=== PATIENT | male | born 1995 | race Caucasian/White ===

== ENCOUNTER 2020-12-08 12:34 | Emergency (ER) | payer OTHER, SELFPAY ==
[2020-12-08 12:52] VITALS: BP 128/86; PULSE 96; RESP 20; TEMP 36.6; O2SAT 96
--- NOTE | 2020-12-08 12:52 | ED.SKABFB ---
HPI - Skin/Abscess/Foreign Bdy General Chief complaint: Skin/Abscess/Foreign Body Stated complaint: bite on left arm Time Seen by Provider: 12/08/20 12:38 Source: patient and RN notes reviewed Mode of arrival: ambulatory Limitations: no limitations History of Present Illness complaint: abscess/boil Related Data Home Medications Medication Instructions Recorded Confirmed No Home Medications 12/08/20 12/08/20 Allergies Allergy/AdvReac Type Severity Reaction Status Date / Time No Known Allergies Allergy Verified 12/08/20 12:57 Review of Systems Review of Systems: Narrative: Patient has been exposed to chlamydia All systems reviewed & are unremarkable except as noted in HPI and below Constitutional: Constitutional: Denies chills and Denies fever(s) PMFSH Past Medical History Medical History Cardiomyopathy Hypertrophy of tonsils Surgical History Surgical History History of adenoidectomy History of appendectomy History of tonsillectomy Family History Family History Mother Breast cancer Social History Social History Smoking status: Former smoker Alcohol intake: current Alcohol use details: social Substance use: former Substance use type: other Other substance usage details: Abused Fentanyl Gender identity (if verbalized by the patient): Male Exam Const: General: healthy appearing, no acute distress and alert Nutritional Appearance: well nourished and thin Orientation/consciousness: patient oriented x3 HENMT: Head: normal to inspection Ears: external ears normal Face and sinus: normal facial exam Mouth: Yes moist mucous membranes Eyes: Conjunctivae: conjunctivae normal Pupils: Equal, round and reactive pupils present EOM: EOMs intact bilaterally Neck: Neck: normal visual inspection Resp: Effort & Inspection: normal respiratory effort Auscultation: clear to auscultation bilaterally Cardio: Rate: regular rate Rhythm: regular rhythm GI: Auscultation: normal bowel sounds Back/Spine/Pelvis: Cervical Spine: cervical ROM normal Thoracic/Lumbar Spine: thoraco-lumbar ROM normal Skin: General skin exam: normal color Lesions: lesion noted pustule left forearm size (2 cm), color with an erythematous base, consistency firm, fluctuant and mobile and tender Neuro: General: patient oriented x3, moves all extremities, no meningeal signs and no focal motor deficits Speech: normal speech Gait exam (Neuro): Normal gait present Extrem: General: normal to inspection and no clubbing, cyanosis or edema Psych: Appearance: grossly normal and well kempt Mental Status: mental status grossly normal Affect: normal affect Attitude: cooperative Thought content: Yes Normal thought content present Procedures Abscess I/D upper extremity: Date of Incision: 12/08/20 Time of Incision: 13:01 Side (if applicable): left Sedation/analgesia: none Local Anesthetic: lidocaine 1% Amount of anesthesia used (mL): 8 Technique: incised with #11 blade Irrigation: No Packing used?: none I&D Results: Blood Discharge Plan Discharge Clinical Impression: Chlamydia contact Abscess of skin or subcutaneous tissue Qualifiers: Site of cutaneous abscess: extremity Site of cutaneous abscess of extremity: upper extremity Laterality: left Qualified Code(s): L02.414 - Cutaneous abscess of left upper limb Patient Disposition: Home, Self-Care Condition: Stable Instructions: Antibiotic Form, Chlamydia (ED), Abscess (ED) Prescriptions: No Action No Home Medications RF: 0 Follow-up/Referrals: Ramila Lerma NP [Primary Care Provider] - Time of Disposition: 13:14
[2020-12-08] MEDS: cefTRIAXone 250 MG VIAL IM (13:14)
[2020-12-08] MEDS: AZITHROMYCIN 250 MG TABLET 1000 MG PO (13:14)
[2020-12-08] MEDS: LIDOCAINE HCL 1% LOCAL INJ 20 ML VIAL INFILTRATE (13:15)
[2020-12-08 13:30] VITALS: BP 121/83; PULSE 83; RESP 20; TEMP 36.7; O2SAT 96
== END 2020-12-08 13:31 | disposition home or self-care (01) ==
PROVIDERS: Emergency Provider Emergency Medicine; PCP Nurse Practitioner Family
DX: L02.414 Cutaneous abscess of left upper limb (principal)
CPT/HCPCS: 10060; 96372; 99282; 99283; A9270; J0696

== ENCOUNTER 2024-04-13 18:54 | Emergency (ER) | payer OTHER, SELFPAY ==
--- NOTE | ~2024-04-13 | XR_ITS ---
XR hand RT min 3V Ordering provider: Montana Malik MD History: . pain . Comparison: None. FINDINGS: BONES: No acute fracture or dislocation. JOINT SPACES: Normal. SOFT TISSUES: Normal. IMPRESSION: No acute osseous abnormality right hand. Reviewed, dictated and finalized at location A. [facility]
--- NOTE | ~2024-04-13 | XR_ITS ---
XR hand LT min 3V Ordering provider: Montana Malik MD History: . pain . Comparison: The FINDINGS: BONES: No acute fracture or dislocation. Overlap of the bases of the fourth and fifth metacarpal bone is noted which may be positional. Evaluation for tenderness in the area is advised to exclude minima l subluxation. JOINT SPACES: Well maintained. SOFT TISSUES: Unremarkable. IMPRESSION: No acute osseous abnormality left hand. Clinical evaluation of the area of the base of the fourth and fifth metacarpal bone is advised. Reviewed, dictated and finalized at location A. [facility] RECOR[employer] CLERK
[2024-04-13 18:58] VITALS: BP 119/70; PULSE 56; RESP 16; TEMP 36.6; O2SAT 100
--- NOTE | 2024-04-13 19:32 | ED.UPPEXIN ---
HPI - Extremity Injury (Upper) General Chief Complaint: Extremity Injury, Upper Stated Complaint: REQUESTING HAND XRAYS Time Seen by Provider: 04/13/24 19:32 Source: patient Mode of arrival: ambulatory Limitations: no limitations History of Present Illness HPI narrative: This is a 28-year-old male who presents to the ED for chief complaint of right hand and left hand injuries occurring over the past couple of days. Reports right finger injured a few days ago and left thumb today. 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 Reports today he was helping his friend put some metal in a dumpster and felt something pop in the left thumb. He is requesting hand x-rays for the above injuries. Denies any further sites of pain or injury. Related Data Home Medications Medication Instructions Recorded Confirmed No Home Medications 12/08/20 12/08/20 Allergies Allergy/AdvReac Type Severity Reaction Status Date / Time No Known Allergies Allergy Verified 04/13/24 18:55 Review of Systems Review of Systems: All systems as dictated in HPI [facility] Past Medical History Medical History Cardiomyopathy Hypertrophy of tonsils Surgical History Surgical History History of adenoidectomy History of appendectomy History of tonsillectomy Family History Family History Mother Breast cancer Social History Social History Smoking status: Former smoker Alcohol intake: current Alcohol use details: social Substance use: former Substance use type: other Other substance usage details: Abused Fentanyl Living arrangements: alone Occupation/Education: unemployed Gender identity (if verbalized by the patient): Male Exam Narrative: GENERAL: Well-appearing, well-nourished, and in no acute distress. MSK: LUE: Mild tenderness to the base of the left thumb. No deformity. RUE: Mild tenderness to the distal right 4th finger. 2 mm of subungual hematoma noted. Full range of motion. SKIN: Warm, dry, no rash. NEURO: Alert and oriented x4. No focal deficits. PSYCH: Normal mood and affect. Course Vital Signs Vital signs: Vital Signs Temperature 97.9 F 04/13/24 18:58 Pulse Rate 56 L 04/13/24 18:58 Respiratory Rate 16 04/13/24 18:58 Blood Pressure 119/70 04/13/24 18:58 Pulse Oximetry 100 04/13/24 18:58 Temperature 97.9 F 04/13/24 18:58 Pulse Rate 56 L 04/13/24 18:58 Respiratory Rate 16 04/13/24 18:58 Blood Pressure 119/70 04/13/24 18:58 Pulse Oximetry 100 04/13/24 18:58 MDM - Extremity Injury (Upper) MDM Narrative Medical decision making narrative: This is a 28-year-old male who presents to the ED for left hand and right hand injuries over the past couple of days. Vitals are normal. Exam is remarkable for the above. No outward signs of trauma. Range of motion is intact. Left hand x-rays: IMPRESSION: No acute osseous abnormality left hand. Clinical evaluation of the area of the base of the fourth and fifth metacarpal bone is advised. Right hand x-rays: IMPRESSION: No acute osseous abnormality right hand. Presentation consistent with musculoskeletal strains. Patient will be discharged in stable condition. Supportive measures discussed and return precautions given. Patient is understanding and agreeable with plan for discharge with PCP follow-up. Discharge Plan Discharge Clinical Impression: Hand injuries Patient Disposition: Home, Self-Care Condition: Stable Instructions: Antibiotic Form Additional Instructions: Your exam and imaging today are reassuring. No fractures detected. Please use Adalberto wrap were [id number] wrist brace for the hand and thumb. Take Tylenol and ibuprofen regularly for pain control. Prescriptions: No Action No Home Medications Follow-up/Referrals: PHYSICIAN,PRINT BUYER [Primary Care Provider] - Time of Disposition: 19:54
== END 2024-04-13 20:15 | disposition home or self-care (01) ==
LOC: ANHED 19:56
PROVIDERS: Emergency Provider Physician Assistant
DX: S60.141A Contusion of right ring finger with damage to nail, initial encounter (principal); S69.92XA Unspecified injury of left wrist, hand and finger(s), initial encounter; I42.9 Cardiomyopathy, unspecified; Z87.891 Personal history of nicotine dependence; W23.0XXA Caught, crushed, jammed, or pinched between moving objects, initial encounter; X58.XXXA Exposure to other specified factors, initial encounter
CPT/HCPCS: 73130; 99284

== ENCOUNTER 2024-05-17 16:07 | Emergency (ER) | payer BC, OTHER, SELFPAY ==
[2024-05-17 16:16] VITALS: BP 107/67; PULSE 66; RESP 18; TEMP 36.7; O2SAT 99
[2024-05-17 16:59] LABS: EDCOVIDSCREEN Negative (Negative); EDINFLUASCREEN Negative (Negative); EDINFLUBSCREEN Negative (Negative)
--- NOTE | 2024-05-17 16:59 | ED_ITS ---
HPI - General Adult General Chief complaint: Upper Respiratory Infection Stated complaint: Sore Throat Source: patient Mode of arrival: ambulatory Limitations: no limitations History of Present Illness HPI narrative: Patient presents for evaluation of sick symptoms. He is currently on amoxicillin for a dental extraction. He has noted a sore throat for about 10 days. He also has a cough, sinus congestion, a popping sensation in his ears. He had some nausea earlier which has since resolved. Denies any vomiting, diarrhea, fever, chills. No recent sick contacts to his knowledge. He has been taking Sudafed for symptoms he does vape. Related Data Allergies Allergy/AdvReac Type Severity Reaction Status Date / Time No Known Allergies Allergy Verified 05/17/24 16:57 Review of Systems Review of Systems: CONSTITUTIONAL: Denies fever, chills, or sweats. EYES: Denies visual changes, redness, or discharge. ENT: Reports sore throat, sinus congestion and a popping sensation in the ears CARDIOVASCULAR: Denies chest pain, palpitations, or edema. RESPIRATORY: Reports cough. Denies shortness of breath. GASTROINTESTINAL: Reports nausea. Denies abdominal pain, vomiting, or diarrhea. GENITOURINARY: Denies dysuria or hematuria. SKIN: Denies rash or itching. MUSCULOSKELETAL: Denies back pain, joint pain, or myalgia. NEUROLOGIC: Denies headache, numbness, dizziness, or weakness. PSYCHIATRIC: Denies anxiety or depression. [facility] Past Medical History Medical History Cardiomyopathy Hypertrophy of tonsils Surgical History Surgical History History of tonsillectomy History of adenoidectomy History of appendectomy Family History Family History Mother Breast cancer Social History Social History Smoking status: Former smoker Alcohol intake: current Alcohol use details: social Substance use: former Substance use type: other Other substance usage details: Abused Fentanyl Living arrangements: alone Occupation/Education: unemployed Gender identity (if verbalized by the patient): Male Exam Narrative: GENERAL: Well-appearing, well-nourished, and in no acute distress. HEAD: Normocephalic, atraumatic. EYES: PERRLA and EOMI. ENT: Nares clear, no rhinorrhea or epistaxis. Mucous membranes moist. Oropharynx without tonsillar hypertrophy exudate or other lesions. There is posterior pharyngeal erythema. Bilateral TMs pearly stuart nonbulging NECK: Supple. No adenopathy or masses. No carotid bruits or JVD CHEST: Clear to auscultation. No respiratory distress. No wheezes rales or rhonchi HEART: Regular rate and rhythm. No murmur heard. Normal peripheral pulses. ABDOMEN: Soft, nontender, nondistended, normal active bowel sounds. EXTREMITIES: Normal range of motion. No edema. SKIN: Warm, dry, no rash. NEURO: No focal deficits. Alert and oriented x3. PSYCH: Normal mood and affect. Course Course Emergency Course: This is a 28-year-old male who presented for evaluation of sick symptoms. He is already on amoxicillin so strep was not ordered. COVID and influenza were negative. We discussed possibility of pneumonia. He would like to be empirically treated for it. Will add on azithromycin. Saturations are normal. Advised smoking cessation. Follow up with primary provider. Go to the ER for worsening symptoms. Patient in agreement with plan of care. Level of Care: Express Care Visit Vital Signs Vital signs: Vital Signs Temperature 36.7 C 05/17/24 16:16 Pulse Rate 66 05/17/24 16:16 Respiratory Rate 18 05/17/24 16:16 Blood Pressure 107/67 05/17/24 16:16 Pulse Oximetry 99 05/17/24 16:16 Oxygen Delivery Room Air 05/17/24 16:16 Temperature 36.7 C 05/17/24 16:16 Pulse Rate 66 05/17/24 16:16 Respiratory Rate 18 05/17/24 16:16 Blood Pressure 107/67 05/17/24 16:16 Pulse Oximetry 99 05/17/24 16:16 Oxygen Delivery Room Air 05/17/24 16:16 Medical Decision Making Vital Signs Vital Signs: Vital Signs Temperature 36.7 C 05/17/24 16:16 Pulse Rate 66 05/17/24 16:16 Respiratory Rate 18 05/17/24 16:16 Blood Pressure 107/67 05/17/24 16:16 Pulse Oximetry 99 05/17/24 16:16 Oxygen Delivery Room Air 05/17/24 16:16 Temperature 36.7 C 05/17/24 16:16 Pulse Rate 66 05/17/24 16:16 Respiratory Rate 18 05/17/24 16:16 Blood Pressure 107/67 05/17/24 16:16 Pulse Oximetry 99 05/17/24 16:16 Oxygen Delivery Room Air 05/17/24 16:16 Lab Data Labs: Lab Results 05/17/24 Range/Units 16:57 POC Influenza A Ag Negative (Negative) POC Influenza B Ag Negative (Negative) POC SARS CoV-2 Ag Negative (Negative) Discharge Plan Discharge Clinical Impression: Acute sore throat, At high risk for pneumonia Patient Disposition: Home, Self-Care Condition: Stable Instructions: Antibiotic Form, Pharyngitis (ED), Pneumonia (ED) Patient Language: Egyptian Prescriptions: New azithromycin 250 mg tablet See Rx Instructions .ROUTE .COMPLEX Qty: 6 0RF Rx Instructions: For 250 mg dose pack: take 500 mg today (day 1), then 250 mg for 4 days (days 2-5) Follow-up/Referrals: Mariluz Ricardo DO [Physician] - Time of Disposition: 16:58
== END 2024-05-17 17:04 | disposition home or self-care (01) ==
PROVIDERS: Emergency Provider Nurse Practitioner
DX: J02.9 Acute pharyngitis, unspecified (principal); R05.9 Cough, unspecified; Z20.822 Contact with and (suspected) exposure to COVID-19; Z87.891 Personal history of nicotine dependence
CPT/HCPCS: 87426; 87804; 99213; G0463

== ENCOUNTER 2025-03-14 14:02 | Emergency (ER) | payer BC, SELFPAY ==
--- OUTSIDE RECORDS SUMMARY | 2023-12-08 10:40 | XMS_ITS ---
Author Organization [facility] Address [address] [place] [address] Care Team Providers Care Internal Controls Specialist Name Role Phone Jemima Hill Primary Care Provider [phone] Griselda Peck Unavailable [phone] REASON FOR VISIT 1 Month Psych F/U & Med Refill Social History Sex Assigned At : Social History Observation Description Sex Assigned At Male Encounters Encounter Location Date Provider Diagnosis [address] [place] [address] 12/08/2023 Griselda Peck Plan Of Treatment No Information Progress Notes * Hola MIGUEL NamitaDOB:1995 (29 yo M)Acc No.[id number]:12/08/2023 UNLOCKED PROGRESS NOTE Patient: Hola ELIZABETH Provider: Kina Peck, MSN, SUPERVISOR YARD-BC, PMHNP-BC :1995 A ge:28 Y S ex:Male Date:12/08/2023 Address:[address], [facility] Pcp:Jemima Hill Subjective: * Chief Complaints: * 1 . 1 Month Psych F/U & Med Refill. * Medical History: Objective: * Vitals: Assessment: Plan: * Treatment: * Recommended Wellness and Pre vention Guidelines: * S tatus A lert L ast Done N ext Due A ction Taken N ONCOMPLIANT D epression followup 0 11/03/2023 0 12/08/2023 - - N ONCOMPLIANT H IV screening - 0 12/08/2023 - - * * Electronic signature of Griselda Peck , [id number] on 03/14/2025 at 03:47 PM CDT Sign off status: Pending * Provider: Kina Peck, MSN, SUPERVISOR YARD-BC, PMHNP-BC Date: 0 12/08/2023 Generated for Jonnathan goins/Marilyn/Suzie on: 1 03:47 PM CDT
[2025-03-14 14:26] VITALS: BP 129/73; PULSE 98; RESP 16; TEMP 36.4; O2SAT 99
--- OUTSIDE RECORDS SUMMARY | 2025-03-14 15:47 | XMS_ITS | Clinical Summary ---
Author Organization [facility] Address [address] [place] [address] Care Team Providers Care Engineering Illustrator Name Role Phone Unavailable Primary Care Provider Unavailabl e Source Comments [facility],non-owned Affiliates and Associated Physician Practices is amultiple site organization consisting of ambulatory clinics and hospital sitesin [place], [place], [place] and [place]. This disclosure is being madepursuant to the Care Everywhere program and may not contain all information available regarding this patient. 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 Gender Identity Not on file Sexual Orientation Not on file Plan of Treatment Health Maintenance Due Date Last Done Comments HIV SCREENING 2009 HEPATITIS C SCREENING 10/04/2012 DTAP/TDAP/TD VACCINES (1 - Tdap) 2013 HEPATITIS B VACCINE (1 of 3 - 19+ 3-dose series) 2013 HPV VACCINE (1 - 3-dose SCDM series) 2021 DEPRESSION SCREENING 05/17/2024 COVID-19 VACCINE ( - 2023-2 5 season) 2025 INFLUENZA VACCINE (#1) 2025 ZOSTER VACCINE (1 of 2) 2044 HIB VACCINE Aged Out No longer eligi ble based on patient's age to complete this topic MENINGOCOCCAL (Group B) VACC INE SHARED DECISION-MAKING Aged Out No longer eligibl e based on patient's age to complete this topic MENINGOCOCCAL GROUPS A/C/Y/W VACCINE Aged Out No longer eligible b ased on patient's age to complete this topic PNEUMOCOCCAL VACCINE Aged Out No long er eligible based on patient's age to complete this topic Insurance [facility]
--- OUTSIDE RECORDS SUMMARY | 2025-03-14 15:47 | XMS_ITS | Clinical Summary ---
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 (chemiluminescent immunoassay) technology. NONREACTIVE: Antibodies to Hepatitis C not detected. This does not exclude early acute Hepatitis C infection, possibility of exposure to Hepatitis C, antibodies below detection limit, or to lack of antibody reactivity to the antigen used in this assay. EQUIVOCAL: Antibodies to Hepatitis C may or may not be present. Sample to be confirmed by real-time PCR method. REACTIVE: Antibodies to Hepatitis C detected.Sample to be confirmed by real-time PCR method. 12/07/2018 8:05 AM CDT 12/07/2018 8:12 AM CDT Narrative [facility] - 12/07/2018 9:57 AM CDT BC Peripheral Draw Resulting Agency Comment IN Nadine Bauer DO LAB MICROBIOLOGY - G ENERAL ORDERABLES Final Result [facility] [address] [place], [place] [address] [phone] from Last 3 Months or Most Recently Relevant to Health Maintenance Insurance [facility] Advance Directives For more information, please contact: [phone] * Full Code (Latest Code Status on File) Date Activated Date Inactivated Comments 04/14/2023 1:57 PM 04/16/2023 5:24 PM * Full Code Date Activated Date Inactivated Comments 07/22/2022 2:07 PM 07/28/2022 1:14 AM * Full Code Date Activated Date Inactivated Comments 07/31/2021 4:51 PM 08/03/2021 6:08 PM Care Teams Movie Projectionist Relationship Specialty Start Date End Date Martin Mathew MD [address] [facility] [address]ANG [address] [place] [id number] PCP - General Family Medicine 09/01/23 Austen Maurer MD [address] [facility] [address] HU[address] [address] Avionics Systems Repairer Cardiology 12/20/18
--- OUTSIDE RECORDS SUMMARY | 2025-03-14 15:47 | XMS_ITS | Encounter Summary ---
Author Organization [facility] Address [facility] [place] [address] Care Team Providers Care Grant Specialist Name Role Phone None, Provider Primary Care Provider Carrie lloyd Encounter Details Date Type Department Care Team (Late st Contact Info) Description 10/22/2018 Abstract [facility] CONVERSION [address] [place] [address] , Generic Conversion, Social History Tobacco Use Types Packs/Day Years Used Date Smoking Tobacco: Never Assessed Sex and Gender Information Value Date Recorded Sex Assigned at Not on file Legal Sex Male 1:48 PM CDT Gender Identity Not on file Sexual Orientation Not on file documented as of this encounter Plan of Treatment Not on file documented as of this encounter Visit Diagnoses Not on filedocumented in this encounter Care Teams Grant Specialist Relationship Specialty Start Date End Date None, ProviderMD PCP - General 06/07/20 documented as of this encounter
--- OUTSIDE RECORDS SUMMARY | 2025-03-14 15:47 | XMS_ITS | Patient Health Record ---
Author Organization [facility] Address [address] [place] [address] Care Team Providers Care Dry Cleaning Teacher Name Role Phone Jemima Hill Primary Care Provider Allergies No Known Allergies Reason For Referral No Information Medications Medication SIG (Take, Route, Frequency, Duration) Notes Start Date End Date Status Spironolactone 25 MG 1 tablet Orally Active Lyrica 50 MG 1 capsule Orally twi ce a day; Duration: 30 days 11/03/2023 Active Mirtazapine 7.5 MG 1 tablet at bedtime Orally Once a day; Duration: 30 days 11/03/2023 Active Vraylar 4.5 MG 1 capsule Orally Onc e a day; Duration: 30 days Active Carvedilol 3.125 MG 1 tablet with food Orally Twice a day Active Sacubitril-Valsartan 24-26 MG 1 tablet Orally Twice a day Active hydrOXYzine Pamoate 50 MG 1 capsule three times a day Orally; Duration: 30 days As needed 11/03/2023 Active Social History Tobacco Use: Social History Observation Description Date Details (start date - stop date) Unknown Sex Assigned At : Social History Observation Description Sex Assigned At Male Dont use, Tobacco Use/Smoking Question Answer Notes Are you a Uses tobacco in other forms Additional Findings: Tobacco User e-Cigarette PRAPARE Question Answer Notes Date Completed/Updated: 04/26/2023 What is your current housing situation? I have h ousing Are you worried about losing your housing? No What is the highest level of school that you have finished? Less than a high school degree What is your current work situation? Oth erwise unemployed but not seeking work (ex. student, retired, disabled, unpaid primary adult care provider) In the past year, have you o r any family members you live with been unable to get any of the following when it was really needed? Check all that apply I do not have problems meeting my needs Has lack of transportation k ept you from medical appointments, meetings, work or from getting things needed for daily living? No How often do you see or talk to people that you care about and feel close to? (For example: talking to friends on the phone, visiting friends or family, going to religion or club meetings) 3 to 5 times a week How stressed are you? Stress is when someone feels tense, nervous, anxious, or can\t sleep at night because their mind is troubled Quite a bit In the past year have you sp ent more than 2 nights in a row in a senior living, intermediate, halfway center, or juvenile correctional facility? No Are you a refugee? No What country are you from? [place] Do you feel physically and e motionally safe where you currently live? Yes In the past year, have you b een afraid of your partner or ex-partner? No PRAPARE Score: 6 Section Notes: PRESCRIPTION # FILLED WRITTEN DRUG LABEL QTY DAYS STRENGTH MME PRESCRIBER PHARMACY REFILL NO. REFILLS STATE 09/01/2023 09/01/2023 Gabapentin 270.0 90 300 MG NA Martin Mathew J, Md - [id number] [place], [place] NA 3 [place] 1 [id number] 04/26/2023 04/26/2023 Buprenorphine-naloxone 14.0 7 8 MG / 2 MG NA Tanwangco Ronna - [id number] [place], [place] NA 0 [place] 1 [id number] 04/19/2023 04/19/2023 Buprenorphine-naloxone 14.0 7 8 MG / 2 MG NA Tanwangco Ronna - [id number] [place] 1 [id number] 04/19/2023 04/19/2023 Naloxone Hcl 2.0 2 40 MG/ML NA Tanwangco Ronna - [id number] PRESCRIPTION # FILLED WRITTEN DRUG LABEL QTY DAYS STRENGTH MME PRESCRIBER PHARMACY REFILL NO. REFILLS STATE 09/01/2023 09/01/2023 Gabapentin 270.0 90 300 MG NA Martin Mathew J, Md - [id number] [place], [place] NA 3 [place] 1 [id number] 04/26/2023 04/26/2023 Buprenorphine-naloxone 14.0 7 8 MG / 2 MG NA Tanwangco Ronna - [id number] [place], [place] NA 0 [place] 1 [id number] 04/19/2023 04/19/2023 Buprenorphine-naloxone 14.0 7 8 MG / 2 MG NA Tanwangco Ronna - [id number] [place] 1 [id number] 04/19/2023 04/19/2023 Naloxone Hcl 2.0 2 40 MG/ML NA Tanwangco Ronna - MT77 Problems Problem Type SNOMED Code ICD Code Onset Dates Problem Status W/U Status Risk Notes Problem Generalized anxiety disorder (77026600) Generalized anxiety disorder (F41.1) 4 Active confirmed Problem Moderate recurrent major depression (96646186) Major depressive disorder, recurrent episode, moderate (F33.1) Active confirmed Problem Opioid use disorder (2561583285) Opioid use disorder (F11.99) Active confirmed Plan Of Treatment No Information Insurance Providers Payer Name Payer Address Payer Phone Subscriber Number Group Number Insured Name Patient Relationship to Insured Coverage Start Date Coverage End Date [facility] Att Claims Department [address] [address] [phone] [id number] Hola Miguel Self - patient is the insured 3 [facility] Claims Department [address] [address] [phone] [id number] Hola Miguel Self - patient is the insured 3 Medical (General) History Medical History History ICD Code Cardiomyopathy Migraines [place] x2 Ejection Fraction is 15% Surgical History Surgery Date(Month/Year) tonsils and adenoids removal appendectomy Hospitalization History Reason Date(Month/Year) Unintentional OD at [place] 07/2023 [facility] for SI age 17 [facility] ot feeling good and passed out kept over night 2015
--- OUTSIDE RECORDS SUMMARY | 2025-03-14 15:47 | XMS_ITS | Clinical Summary ---
Author Organization [facility] Address [address] [place] [address] Care Team Providers Care Insurance Coder Name Role Phone None, Provider MD Primary Care Provider Unavaila ble Allergies No known active allergies Social History Tobacco Use Types Packs/Day Years Used Date Smoking Tobacco: Never Smokeless Tobacco: Never Tobacco Cessation:Counseling Given: Not Answered Alcohol Use Standard Drinks/Week Comments Yes 0 (1 standard drink = 0.6 oz pur e alcohol) Sex and Gender Information Value Date Recorded Sex Assigned at Not on file Legal Sex Male 1:48 PM CDT Gender Identity Not on file Sexual Orientation Not on file Last Filed Vital Signs Vital Sign Reading Time Taken Comments Blood Pressure 115/84 05/23/2022 11:25 AM TRANSFER TABLE OPERATOR HELPER Pulse 65 05/23/2022 11:25 AM TRANSFER TABLE OPERATOR HELPER Temperature 36.4 C (97.5 F) 05/23/2022 11:25 AM TRANSFER TABLE OPERATOR HELPER Respiratory Rate 18 05/23/2022 11:25 AM TRANSFER TABLE OPERATOR HELPER Oxygen Saturation 97% 05/23/2022 11:25 AM TRANSFER TABLE OPERATOR HELPER Inhaled Oxygen Concentration - - Weight 74.8 kg (165 lb) 05/23/2022 11:25 AM TRANSFER TABLE OPERATOR HELPER Height 167.6 cm (5' 6) 05/23/2022 11:25 AM TRANSFER TABLE OPERATOR HELPER Body Mass Index 26.63 05/23/2022 11:25 AM TRANSFER TABLE OPERATOR HELPER Plan of Treatment Health Maintenance Due Date Last Done Comments Annual Physical 1997 Hepatitis C 2012 DTaP, Tdap and Td Vaccines ( 1 - Tdap) 2013 Hepatitis B Vaccines (1 of 3 - 19+ 3-dose series) 2013 HPV Vaccines (1 - 3-dose SCD M series) 2021 COVID-19 Vaccine (2024-2 6 season) 2025 Influenza Adult (#1) 2025 Hepatitis A Vaccines Aged Out No long er eligible based on patient's age to complete this topic Meningococcal B Vaccine Aged Out No l onger eligible based on patient's age to complete this topic Meningococcal Vaccine Aged Out No latasha tay eligible based on patient's age to complete this topic Pneumococcal Vaccine: Pediat rics (0 to 5 Years) and At-Risk Patients (6 to 49 Years) Aged Out No longer eligible b ased on patient's age to complete this topic RSV Immunizations Under 20 Months Aged Out No longer eligible based on patient's age to complete this topic Insurance Advance Directives Documents on File Type Date Recorded Patient Correction Officer Penitentiary Expl anation Advance Directives and Living Will 06/13/2018 12:00 AM ADVANCED DIRECTIVES Advance Directives and Living Will 04/11/2018 12:00 AM ADVANCED DIRECTIVES Care Teams Insurance Coder Relationship Specialty Start Date End Date None, Provider, PCP - General 06/07/20
--- NOTE | 2025-03-14 15:59 | PC.NURSE ---
Patient walked out of department prior to seeing provider
--- OUTSIDE RECORDS SUMMARY | 2025-03-14 17:51 | XMS_ITS | Clinical Summary ---
Author Organization [facility] Address [address] [place] [address] Care Team Providers Care Furniture Fabricator Name Role Phone None, Provider MD Primary [...] Comments Blood Pressure 115/84 05/23/2022 11:25 AM SORTING GRAPPLE OPERATOR Pulse 65 05/23/2022 11:25 AM SORTING GRAPPLE OPERATOR Temperature 36.4 C (97.5 F) 05/23/2022 11:25 AM SORTING GRAPPLE OPERATOR Respiratory Rate 18 05/23/2022 11:25 AM SORTING GRAPPLE OPERATOR Oxygen Saturation 97% 05/23/2022 11:25 AM SORTING GRAPPLE OPERATOR Inhaled Oxygen Concentration - - Weight 74.8 kg (165 lb) 05/23/2022 11:25 AM SORTING GRAPPLE OPERATOR Height 167.6 cm (5' 6) 05/23/2022 11:25 AM SORTING GRAPPLE OPERATOR Body Mass Index 26.63 05/23/2022 11:25 AM SORTING GRAPPLE OPERATOR Plan of Treatment Health Maintenance Due Date [...] Documents on File Type Date Recorded Patient Travel Accommodations Rater Expl anation Advance Directives and Living Will 06/13/2018 12:00 AM ADVANCED DIRECTIVES Advance Directives and Living Will 04/11/2018 12:00 AM ADVANCED DIRECTIVES Care Teams Furniture Fabricator Relationship Specialty Start Date End Date None, Provider, PCP - General 06/07/20
--- OUTSIDE RECORDS SUMMARY | 2025-03-14 17:51 | XMS_ITS | Encounter Summary ---
Author Organization [facility] Address [facility] [place] [address] Care Team Providers Care Tanning Wheel Operator Name Role Phone None, Provider Primary Care Provider Carrie lloyd Encounter Details Date Type Department Care Team (Late st Contact Info) Description 10/22/2018 Abstract [facility] CONVERSION [address] [place] [address] , Generic Conversion, Social History Tobacco Use [...] on filedocumented in this encounter Care Teams Tanning Wheel Operator Relationship Specialty Start Date End Date None, ProviderMD PCP - General 06/07/20 documented as of this encounter
--- OUTSIDE RECORDS SUMMARY | 2025-03-14 17:51 | XMS_ITS | Clinical Summary ---
Author Organization [facility] Address [address] [place] [address] Care Team Providers Care Fruit Express Agent Name Role Phone Austen Maurer MD Unavailable [phone] Martin Mathew MD Primary Care Provider [phone] Allergies No known active allergies Medications cetirizine [...] placement in the Operating room, would need Tonsorial Artist clearance due to low Ejection fraction How [...] Description 03/05/2025 1:30 PM CDT Office Visit [facility] at [address] [place] [phone] Martin Mathew MD Strain of lumbar region, subsequent encounter (Primary Dx) 03/05/2025 Nurse Triage [facility] Family Medicine at [address] [place] [phone] Martin Mathew MD 03/03/2025 6:17 PM CDT - 03/03/2025 6:18 PM CDT Emergency [facility] Emergency Department [address] [place] [address] Lumbar strain, initial encounter (Primary Dx) Discharge Disposition: Discharge to home or self care 02/22/2025 1:00 PM CDT Office Visit [facility] - [address] [place] [phone] Rima Henry, Non-seasonal allergic rhinitis due to pollen (Primary Dx); Dysfunction of left eustachian tube 02/16/2025 Results Follow-Up [facility] [address] [place] [phone] Amanda Mari MA Transthoracic Echo (TTE) Complete W Doppler/CF 02/15/2025 7:30 AM CDT - 02/15/2025 8:00 AM CDT Surgery [facility] Operating Room [address] [place] [address] Rima Henry, DO TYMPANOSTOMY WITH VENTILATION TUBE UNILATERAL. [01930 (CPT )] 02/15/2025 7:25 AM CDT Anesthesia Event [facility] Operating Room [address] [place] [address] Maria Victoria Lr MD 02/15/2025 5:57 AM CDT - 02/15/2025 9:20 AM CDT Hospital Encounter [facility] Operating Room [address] [place] [address] Rima Henry, Dysfunction of left eustachian tube [H69.92] (Primary Dx) Discharge Disposition: Discharge to home or self care 02/14/2025 9:00 AM CDT Ancillary Procedure [facility] [address] [place] [phone] Nonischemic cardiomyopathy (HCC) 01/30/2025 2:00 PM CDT Office Visit [facility] [address] [place] [address] [address] [place] [phone] Vida Albarado MD Nonischemic cardiomyopathy (HCC) (Primary Dx); Preoperative evaluation to rule out surgical contraindication 01/23/2025 Telephone [facility] [address] [place] [phone] Renea Chaudhari MA 01/16/2025 Telephone [facility] - [address] [place] [address] Renea Chaudhari MA 01/05/2025 9:15 AM CDT Office Visit [facility] - [address] [place] [address] Rima Henry, DO Dysfunction of left eustachian tube (Primary Dx); Cardiac abnormality 01/05/2025 8:30 AM CDT Procedure visit [facility] at [address] [place] [address] Daphney Moody Au.D. Mixed conductive and sensorineural hearing loss of left ear with restricted hearing of right ear (Primary Dx) 12/13/2024 2:30 PM CDT Office Visit [facility] - [address] [place] [address] Rima Henry, DO Acute swimmer's ear of left side (Primary Dx) 12/12/2024 Telephone [facility] [address] [place] [address] Renea Chaudhari MA 12/12/2024 Telephone [facility] - [address] [place] [address] Renea Chaudhari MA from Last 3 Months [...] TUBE UNILATERAL.; Surgeon: Rima Henry DO; Location: [facility]; Service: Otolaryngology; Laterality: Left; Left [...] often do you attend chur ch or holiness services? Never 07/23/2022 Do you belong to any clubs o r organizations such as advent groups, unions, fraternal or athletic groups, or [...] on file Legal Sex Male 5:55 AM CAMERA SUPERVISOR Gender Identity Male 12/31/2022 12:04 PM CDT [...] this topic Medical Devices Implanted Type Area Tie In Hand Device Identifier Shelf Expiration Date Model / Serial / Lot MerchMe Ventilation Tube Grommet Middle Ear Beveled [place] Coated Gomez 1.14mm Fluoroplastic [id number] - [id number] Implanted:Qty: 1 on 02/15/2025 by Rima Henry DO at [facility] Left: Tympanic Membrane MerchMe [id number] / / [id number] Procedures Procedure Name Priority Date/Time Associated Diagnosis Comments XR SPINE LUMBAR ROUTINE ED 03/03/2025 5:41 PM CDT VA AN ELECTIVE SUPRAGLOTTIC AIRWAY Routine 02/15/2025 7:53 AM CDT VA TYMPANOSTOMY GENERAL ANESTHESIA 02/15/2025 7:25 AM CDT [...] 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 Pt describes the pain as constant, [...] Josue Zavala M.D. AT: AT Report ID: [id number] Reading Location: [place] [address] Procedure Note Josue Zavala MD - 03/03/2025 EXAM DESCRIPTION: XR SPINE LUMBAR 4 OR MORE VIEWS REASON FOR STUDY: pain Complaints of lower back pain x 2 Days. 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 Pt describes the pain asconstant, sharp, [...] Josue Zavala M.D. AT: AT Report ID: [id number] Reading Location: [place] [address] Renea PAIGE IMG XR PROCEDURES Final Result * VA AN ELECTIVE SUPRAGLOTTIC AIRWAY (02/15/2025 7:53 AM CDT) Narrative Vicki Ray CRNA - 02/15/2025 7:53 AM CDT Vicki Ray CRNA 02/15/2025 7:53 AM Airway Patient location: OR Urgency: elective Indications for airway management: anesthesia and airway protection Difficult airway: no Staff: Supervising provider: Maria Victoria Lr MD Placed by: SALES REPRESENTATIVE GROCERIES: Vicki Ray CRNA Emergent airway documentation: Risks [...] AM CDT Narrative 02/14/2025 9:50 AM CDT [facility] [address] [place] [address] Echocardiogram Report Patient Name: TRENT MIGUEL J [...] Procedure Note Amelia Osman MD - 02/14/2025 [facility] [address] [place] [address]. [address] [place] [address] Echocardiogram Report Patient Name: TRENT MIGUEL J [...] 8:05 AM CDT) HepBsAg NONREACT NONREACTIVE [facility] Comment: Siemens ZostelaurXP using ASHLEIGH (chemiluminescent immunoassay) technology. NONREACTIVE: IgM antibodies to Hepatitis B Surface antigen not detected. REACTIVE: IgM antibodies to Hepatitis B Surface antigen detected. Reactive results will be confirmed by neutralization testing. HBsAb qn <3.10 mIU/mL [facility] Comment: Siemens ZostelaurXP using ASHLEIGH (chemiluminescent immunoassay) technology. 9.99 IU/L or less.....NONREACTIVE: IgM antibodies to Hepatitis B Surface antibody are not detected. 10.00 IU/L or greater..REACTIVE: IgM antibodies to Hepatitis B Surface antibody are detected. Hep B core IgM NONREACT NONREACTIVE [facility] Comment: Siemens CentaurXP using ASHLEIGH (chemiluminescent immunoassay) technology. NONREACTIVE: IgM antibodies to Hepatitis B Core antigen not detected. EQUIVOCAL: IgM antibodies to Hepatitis B Core antigen may or may not be present. Obtain a new specimen and retest. REACTIVE: IgM antibodies to Hepatitis B Core antigen detected. Hep A IgM NONREACT NONREACTIVE [facility] Comment: Siemens CentaurXP using ASHLEIGH (chemiluminescent immunoassay) technology. NONREACTIVE: IgM antibodies to Hepatitis A not detected. This does not exclude possibility of exposure to Hepatitis A or early acute infection. EQUIVOCAL:IgM antibodies to Hepatitis A may or may not be present. Suggest recollection and retest. REACTIVE: Antibodies to Hepatitis A detected. Hep C Ab NONREACT NONREACTIVE [facility] Comment: Siemens CentaurXP using ASHLEIGH (chemiluminescent immunoassay) [...] CDT 12/07/2018 8:12 AM CDT Narrative [facility] - 12/07/2018 9:57 AM CDT BC Peripheral Draw Resulting Agency Comment IN Nadine Bauer DO LAB MICROBIOLOGY - G ENERAL ORDERABLES Final Result [facility] [address] [place], [place] [address] [phone] from Last 3 Months or Most Recently Relevant to Health Maintenance Insurance [facility] Advance Directives For more information, please contact: [phone] * Full Code (Latest Code Status on File) Date Activated Date Inactivated Comments 04/14/2023 1:57 PM 04/16/2023 5:24 PM * Full Code Date Activated Date Inactivated Comments 07/22/2022 2:07 PM 07/28/2022 1:14 AM * Full Code Date Activated Date Inactivated Comments 07/31/2021 4:51 PM 08/03/2021 6:08 PM Care Teams Fruit Express Agent Relationship Specialty Start Date End Date Martin Mathew MD [address] [facility] [address] [place] [address] PCP - General Family Medicine 09/01/23 Austen Maurer MD [address] [facility] [address] [address] Tonsorial Artist Cardiology 12/20/18
--- OUTSIDE RECORDS SUMMARY | 2025-03-14 17:51 | XMS_ITS | Clinical Summary ---
Author Organization [facility] Address [address] [place] [address] Care Team Providers Care Purchase Request Editor Name Role Phone Unavailable Primary Care Provider Unavailabl e Source Comments [facility],non-owned Affiliates and Associated Physician Practices is amultiple site organization consisting of ambulatory clinics and hospital sitesin [place], [place], [place] and [place]. This disclosure is being madepursuant to the Care Everywhere program and may not contain all information available regarding this patient. 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
== END 2025-03-14 16:06 | disposition left against medical advice (07) ==
DX: S09.92XA Unspecified injury of nose, initial encounter (principal)
CPT/HCPCS: 99199